=== PATIENT | male | born 1965 | race Two or more races ===

== ENCOUNTER → 2025-02-15 | Outpatient (CLI) | payer OTHER | LOC: M WUC 15:18 | PROVIDERS: ATTEND Internal Medicine | DX: M25.511 Pain in right shoulder (principal); M19.011 Primary osteoarthritis, right shoulder ==

== ENCOUNTER → 2025-03-02 | Outpatient (REF) | payer OTHER ==
[2025-03-02 15:11] LABS: ALT/SGPT 28.0 U/L (7.0-40); AST/SGOT 42.0 U/L (<34); CALCIUM LEVEL 8.6 MG/DL (8.3-10.6); CARBON DIOXIDE LEVEL 28.0 MMOL/L (20-31); CHLORIDE LEVEL 99.0 MMOL/L (98-107); CHOLESTEROL LEVEL 211.0 MG/DL (<200); CHOLESTEROL RISK RATIO 2.31 (<5); CREATININE FOR GFR 0.99 MG/DL (0.70-1.30); GLOMERULAR FILTRATION RATE 87.2 (>49); LDL CHOLESTEROL 81.2 MG/DL (<100); NON-HDL-C 120.0 MG/DL; POTASSIUM SERUM 5.0 MMOL/L (3.5-5.1); SODIUM LEVEL 136.0 MMOL/L (136-145); TRIGLYCERIDES LEVEL 194.0 MG/DL (<150)
== END ==
LOC: M LAB REF 13:11
PROVIDERS: ATTEND Nurse Practitioner
DX: I10 Essential (primary) hypertension (principal); R74.01 Elevation of levels of liver transaminase levels; K76.0 Fatty (change of) liver, not elsewhere classified; E78.1 Pure hyperglyceridemia; Z13.220 Encounter for screening for lipoid disorders

== ENCOUNTER → 2025-03-08 | Outpatient (CLI) | payer OTHER | LOC: M PLAIMG 12:48 | PROVIDERS: ATTEND Nurse Practitioner | DX: M54.41 Lumbago with sciatica, right side (principal); M54.42 Lumbago with sciatica, left side; G89.29 Other chronic pain; M51.26 Other intervertebral disc displacement, lumbar region; M51.27 Other intervertebral disc displacement, lumbosacral region ==

== ENCOUNTER → 2025-03-23 | Outpatient (CLI) | payer OTHER | LOC: M RAD 15:51 | PROVIDERS: ATTEND Internal Medicine | DX: M25.511 Pain in right shoulder (principal); M75.111 Incomplete rotator cuff tear or rupture of right shoulder, not specified as traumatic; M75.21 Bicipital tendinitis, right shoulder ==

== ENCOUNTER 2025-04-04 08:01 | Observation (INO) | payer OTHER ==
[~2025-04-04] VITALS: Ht 182.9 cm; Wt 89.0 kg
[2025-04-04] MEDS ORDERED: DUPI300P INJ (08:14)
[2025-04-04] MEDS ORDERED: PIME1CRE TOP (08:14)
[2025-04-04] MEDS ORDERED: DOXY20TA6 PO (08:14)
[2025-04-04] MEDS ORDERED: MYCO500T PO (08:14)
[2025-04-04] MEDS ORDERED: TIRZ2.5P3 INJ (08:14)
[2025-04-04] MEDS ORDERED: PRED20TA PO (08:14)
[2025-04-04] MEDS ORDERED: TADA5TAB2 PO (08:14)
[2025-04-04] MEDS ORDERED: BACL10TA2 PO (08:14)
[2025-04-04] MEDS ORDERED: LOSA100T46 PO (08:14)
[2025-04-04] MEDS ORDERED: ZOLP10TA11 PO (08:14)
[2025-04-04 09:22] LABS: BASO # 0.0 10^3/uL (0.0-0.2); BASO % 0.4 % (0.0-1.0); EOS # 0.0 10^3/uL (0.0-0.5); EOS % 0.7 % (0.0-3.0); LYMPH # 0.5 10^3/uL (1.5-5.0); LYMPH % 8.4 % (24.0-44.0); MONO # 0.7 10^3/uL (0.0-0.8); MONO % 12.8 % (2.0-8.0); NEUTROPHILS # 4.2 10^3/uL (1.5-8.5); NEUTROPHILS % 77.5 % (36.0-66.0); PLATELET COUNT, AUTOMATED 187 10^3/uL (150-450)
[2025-04-04 09:31] LABS: ALT/SGPT 34.0 U/L (7.0-40); AST/SGOT 72.0 U/L (<34); CALCIUM LEVEL 8.7 MG/DL (8.3-10.6); CARBON DIOXIDE LEVEL 26.0 MMOL/L (20-31); CHLORIDE LEVEL 99.0 MMOL/L (98-107); CREATININE FOR GFR 0.99 MG/DL (0.70-1.30); GLOMERULAR FILTRATION RATE 87.2 (>49); POTASSIUM SERUM 3.7 MMOL/L (3.5-5.1); SODIUM LEVEL 134.0 MMOL/L (136-145)
[2025-04-04] MEDS: NS (Normal Saline) 0.9% 1,000 ML IV ONE (09:35)
[2025-04-04 09:48] LABS: INR 0.88
[2025-04-04] MEDS ORDERED: ISOVUE-370 76% 100 ML VIAL As Ordered ONE (09:56)
[2025-04-04] MEDS ORDERED: [UNRECOGNIZED DRUG - CODE] INJ (10:03)
[2025-04-04] MEDS ORDERED: [UNRECOGNIZED DRUG - CODE] INJ (10:03)
[2025-04-04] MEDS ORDERED: GAMU20IN INJ (10:03)
[2025-04-04] MEDS ORDERED: OMEP1CAP73 PO (10:03)
[2025-04-04] MEDS ORDERED: VITA500T73 PO (10:06)
[2025-04-04] MEDS ORDERED: HOME MED LIST COMPLETE! XX SCH (10:10)
[2025-04-04 13:25] LABS: PLATELET COUNT, AUTOMATED 177 10^3/uL (150-450)
[2025-04-04] MEDS ORDERED: ACETAMINOPHEN 325 MG TAB PO PRN (16:25)
[2025-04-04] MEDS: NS (Normal Saline) 0.9% 1,000 ML IV SCH (17:06)
[2025-04-04] MEDS: AZITHROMYCIN 250 MG TABLET PO SCH (17:06)
[2025-04-04] MEDS: BACLOFEN 10 MG TAB PO SCH (21:45)
[2025-04-05 01:25] VITALS: BP 127/75; TEMP 98.1; O2SAT 98
[2025-04-05 02:00] VITALS: O2SAT 98
[2025-04-05 03:00] VITALS: O2SAT 98
[2025-04-05 04:00] VITALS: BP 134/81; TEMP 97.8; O2SAT 98
[2025-04-05 04:56] LABS: PLATELET COUNT, AUTOMATED 170 10^3/uL (150-450)
[2025-04-05 05:16] LABS: ALT/SGPT 24 U/L (7.0-40); AST/SGOT 42 U/L (<34); CALCIUM LEVEL 7.6 MG/DL (8.3-10.6); CARBON DIOXIDE LEVEL 23 MMOL/L (20-31); CHLORIDE LEVEL 105 MMOL/L (98-107); CREATININE FOR GFR 0.89 MG/DL (0.70-1.30); GLOMERULAR FILTRATION RATE > 90.0 (>49); MAGNESIUM LEVEL 1.7 MG/DL (1.8-2.4); POTASSIUM SERUM 3.8 MMOL/L (3.5-5.1); SODIUM LEVEL 136 MMOL/L (136-145)
[2025-04-05 07:09] LABS: IMMUNOGLOBULIN E < 2.5 IU/ML (0-378)
[2025-04-05 08:00] VITALS: BP 137/86; TEMP 97; O2SAT 99
[2025-04-05] MEDS: CYANOCOBALAMIN 500 MCG TAB PO SCH (08:54)
[2025-04-05] MEDS: predniSONE 20 MG TAB PO SCH (08:54)
[2025-04-05] MEDS: MAG SULF 1GM/100ML (MAG RUN) 1 GM in IV 1 EA IV ONE (08:54)
[2025-04-05 08:56] VITALS: BP 137/86
[2025-04-05] MEDS: OMEPRAZOLE 20MG CAP PO SCH (08:56)
[2025-04-05] MEDS: LOSARTAN 50 MG TABLET PO SCH (08:56)
[2025-04-05] MEDS ORDERED: AZIT-12 PO (10:42)
[2025-04-05] MEDS ORDERED: RISATAB3 PO (10:42)
== END 2025-04-05 12:05 | disposition home or self-care (01) ==
LOC: M ED 08:01 → M ED INP 08:02 → M ICU 04-05 01:23
PROVIDERS: ADMIT Internal Medicine; ATTEND Internal Medicine
DX: A04.5 Campylobacter enteritis (principal); E87.1 Hypo-osmolality and hyponatremia; R31.9 Hematuria, unspecified; D64.9 Anemia, unspecified; R74.01 Elevation of levels of liver transaminase levels; G61.81 Chronic inflammatory demyelinating polyneuritis; Z79.52 Long term (current) use of systemic steroids; Z79.899 Other long term (current) drug therapy; E83.42 Hypomagnesemia; L20.9 Atopic dermatitis, unspecified; L71.9 Rosacea, unspecified; I10 Essential (primary) hypertension; K64.5 Perianal venous thrombosis; Z79.2 Long term (current) use of antibiotics; K21.9 Gastro-esophageal reflux disease without esophagitis; M25.511 Pain in right shoulder; E66.9 Obesity, unspecified
CPT/HCPCS: 36415; 71045; 74174; 80047; 80048; 80053; 80076; 82784; 82785; 83605; 83690; 83735; 85014; 85018; 85025; 85027; 85384; 85610; 85730; 86850; 86900; 86901; 87507; 93005; 96361; 96374; 99285; J3475; J7512; Q9967

== ENCOUNTER → 2025-04-19 | Outpatient (CLI) | payer OTHER ==
[~2025-04-19] MED LIST: AZIT-12 PO; BACL10TA2 PO; DOXY20TA6 PO; DUPI300P INJ; GAMU20IN INJ; LOSA100T46 PO; MYCO500T PO; OMEP1CAP73 PO; PIME1CRE TOP; PRED20TA PO; RISATAB3 PO; TADA5TAB2 PO; TIRZ2.5P3 INJ; VITA500T73 PO; ZOLP10TA11 PO; [UNRECOGNIZED DRUG - CODE] INJ; [UNRECOGNIZED DRUG - CODE] INJ
== END ==
LOC: M WHC 08:49
PROVIDERS: ATTEND Nurse Practitioner
DX: G61.81 Chronic inflammatory demyelinating polyneuritis (principal); Z79.52 Long term (current) use of systemic steroids

== ENCOUNTER 2025-04-25 12:59 | Outpatient (RCR) | payer OTHER | END 2025-05-18 | LOC: M PT 12:59 | PROVIDERS: ATTEND Internal Medicine | DX: M25.511 Pain in right shoulder (principal) ==